=== PATIENT | male | born 1975 | race Two or more races ===

== ENCOUNTER 2018-10-08 16:37 | Emergency (ER) | payer OTHER ==
[2018-10-08] MEDS ORDERED: NS 0.9% 1000 ML** 1,000 ML IV.FLUID IV ONE (16:53)
[2018-10-08] MEDS ORDERED: EPINEPHRINE 1 MG/ML 1 ML VIAL ONE (16:55)
[2018-10-08] MEDS ORDERED: methylPREDNISolone 125 MG* 2 ML VIAL ONE (16:57)
[2018-10-08] MEDS ORDERED: diPHENhydraMINE IV* 50 MG/ML 1 ml VIAL (BENADRYL) ONE (16:58)
--- NOTE | 2018-10-08 17:01 | ED ---
Allergic Reaction/Systemic - HPI Summary HPI Summary: This patient is a 43 year old M whos presentsto [facility] by private car, accompanied by his with a chief complaint of chest tightness, throat tightening, a hoarse void and jaw pain after sustaining multiple bee stings by walking into a bee's nest which occurred at 15:10 today. Pts reports that he was also scratching his scalp. Pt did not take any medication prior to presenting. Pt has not prior hx of allergy to bees, or medications. Per triage , patient rates the pain of the multiple beestings as a 6/10 in severity. Pt has no PMH of heart disease and no family hx of heart disease. Both of his parents are alive and well. 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, arrived by private car Associated Signs And Symptoms: Positive: Chest Pain, Hoarseness, Rash - total body urticaria, Throat Tightening, Other: - jaw pain, lip swelling - Related Hx Possible Reaction To: Insect - bees - Allergies/Home Medications Allergies/Adverse Reactions: Allergies Allergy/AdvReac Type Severity Reaction Status Date / Time No Known Allergies Allergy Verified 10/08/18 16:42 PMH/Surg Hx/FS Hx/Imm Hx Previously Healthy: Yes Sensory History: Denies: Hx Legally Blind EENT History: Denies: Hx Deafness - Surgical History Surgical History: None Infectious Disease History: No Infectious Disease History: Denies: Traveled Outside the [place] in Last 30 Days - Family History Known Family History: Positive: None - Both of his parents are alive and well.No significant FHx of disease - Social History Lives: With Family Alcohol Use: Weekly Hx Substance Use: No Hx Tobacco Use: Yes Smoking Status (MU): Former Smoker Review of Systems Constitutional: Negative Positive: Other - pos - jaw pain, hoarse voice, throat tightening Positive: Chest Pain Respiratory: Negative Gastrointestinal: Negative Positive: no symptoms reported Musculoskeletal: Negative Positive: Other - total body urticaria Neurological: Negative Psychological: Normal All Other Systems Reviewed And Are Negative: Yes Physical Exam - Summary Physical Exam Summary: Appearance: Ill-appearing, moderate pain distress, well-nourished, hoarse voice per Skin: Warm, color reflects adequate perfusion, dry, All extremities and trunk covered in hives Head: scalp without abnormality despite report of itching, atraumatic Eyes: Conjunctiva clear, EOMI ENT: loss of lip creases and minor lip swelling, Frequently clearing throat, no uvular edema Neck: Supple, no nodes, no JVD Respiratory: Lungs clear, normal breath sounds, no respiratory distress Cardio: RRR, No murmur, pulses normal, brisk capillary refill Abdomen: Soft, nontender Bowel sounds: Present Musculoskeletal: Strength Intact/ROM intact, no calf tenderness, no edema. Psychological: Normal Neuro: Alert, muscle tone normal, no focal deficit Triage Information Reviewed: Yes Vital Signs On Initial Exam: Initial Vitals Temp Pulse Resp BP Pulse Ox 98.6 F 83 12 120/77 96 10/08/18 16:37 10/08/18 16:37 10/08/18 16:37 10/08/18 16:37 10/08/18 16:37 Vital Signs Reviewed: Yes Diagnostics - Vital Signs Vital Signs Temp Pulse Resp BP Pulse Ox 10/08/18 16:56 98.6 F 10/08/18 16:37 98.6 F 83 12 120/77 96 - Laboratory Lab Statement: Any lab studies that have been ordered have been reviewed, and results considered in the medical decision making process. - EKG 1705 Cardiac Rate: NL - 77 bpm EKG Rhythm: Sinus Rhythm ST Segment: Non-Specific Ectopy: None EKG Comparison: Other - no prior to compare Summary of EKG Findings: An EKG at 1705 reveals sinus rhythm 77 bpm nml AV/IV CT , nml QTc. No acute changes. ED has reviewed and interpreted this EKG. Re-Evaluation - Re-Evaluation First Eval Re-Evaluation Time: 17:05 Change: Improved Comment: Ordered EKG, no new symptoms. Pt has a myoclonic jerk. HR 76, O2 Sat 99 %, BP 117/72. PE upon re-eval : no wheezing Second Eval Re-Evaluation Time: 19:47 Change: Improved Comment: Nml voice, hives have diappeared. Lip swelling and hoarse voice have resolved. Discussed plan of care with pt and his . Allergic Reaction Course/Dx - Course Course Of Treatment: 43 yo M presents with anaphylaxis after stepping into a bee 's nest and sustaining multiple beestings. Pt was treated with meds immediately from the anaphylaxis kit, including Epinephrine as pt reported no cardiac history, and his symptoms improved over time while being observed in the ED. Initial physical exam findings revealed that pt frequently cleared his throat while speaking and per his had a hoarse voice. All of his extremities and trunk were covered with hives. Pt had mild lip swelling, no posterior pharyngeal or uvular swelling, no facial swelling, and no wheezes. An EKG at 1705 reveals sinus rhythm [address], nml QTc. No acute changes, and no prior to compare. Pt is on no medications and pt does not have a current PCP. This is the pt's first visit to the [facility] ED. Nurses notes reviewed. Pt had no prior allergies. In the ED course the patient was given epinephrine 0.3mg IM, Benadryl 50mg IV, Solumedrol 125mg IV (per the anaphylaxis kit) and famotidine 20mg IV and IV NS with relief of his symptoms. 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 He and his are advised that he will need to administre the Epipen and then call 911 in the event of another beesting. He is also advised that he will need to get established with a PCP, as well as see an starter mechanic for further evaluation and treatment. Pt will be discharged with prescriptions, that he must use as directed, for: Epipen with refills, prednisone, and famotidine and he is advised to continue Benadryl 50mg q 6 hours around the clock for the next 48 hrs and then prn. The patient is agreeable with this plan. - Diagnoses Provider Diagnoses: Bee sting-induced anaphylaxis, Bee allergy status - Critical Care Time Critical Care Time: 30-74 min Discharge ED - Sign-Out/Discharge Documenting (check all that apply): Patient Departure - home with his driving Patient Received Moderate/Deep Sedation with Procedure: No - Discharge Plan Condition: Stable Disposition: HOME Prescriptions: EPINEPHrine [Epipen 2-Steve] 0.3 mg IM ONCE PRN #1 inj PRN Reason: Hives Famotidine TAB* [Pepcid 20 MG TAB*] 40 mg PO DAILY #5 tab predniSONE [Prednisone 20 MG TAB] 40 mg PO ONCE #5 tablet Patient Education Materials: Anaphylaxis (ED) Forms: *Work Release Referrals: [facility] [Outside] William Flores MD [Medical Doctor] - As Soon As Possible (See an starter mechanic as soon as possible ) No Primary Care Phys,NOPCP [Primary Care Provider] - Additional Instructions: You were given epinephrine 0.3mg IM, benadryl 50mg IV, solumedrol 125mg IV and pepcid 20mg IV and your symptoms improved. Your EKG did not show any acute abnormalities. You will need to continue the benadryl 50mg orally every six hours for at least 48 hours, and you will need to take the prescriptions for prednisone and pepcid as directed for 5 days. You are allergic to bees with severe anaphylaxis as the reaction. You will always need to carry an epipen that you must inject any time you get another beesting, and then you must call 911. Return to the ER if you have any new or worsening symptoms. - Billing Disposition and Condition Condition: STABLE Disposition: Home - Attestation Statements Document Initiated by Danie: Yes Documenting Scribe: Dorys Dillard Provider For Whom Danie is Documenting (Include Credential): Dr. Traci Navarro MD Scribe Attestation: Dorys Mortensen scribed for Dr. Traci Navarro MD on 10/30/18 at 1416. Scribe Documentation Reviewed: Yes Provider Attestation: The documentation as recorded by the Dorys griffin accurately reflects the service I personally performed and the decisions made by me, Dr. Traci Navarro MD Status of [employer] Document: Viewed
[2018-10-08] MEDS ORDERED: Famotidine IV* 10 MG/ML 2 ML (20 mg) IV SLOW PU ONE (17:02)
[2018-10-08 18:28] LABS: HIV 4th Generation Negative (Negative)
[2018-10-08 20:20] VITALS: BP 108/63
== END 2018-10-08 20:20 | disposition home or self-care (01) ==
LOC: ED 16:37
DX: T63.441A Toxic effect of venom of bees, accidental (unintentional), initial encounter (principal); T78.2XXA Anaphylactic shock, unspecified, initial encounter; Y92.9 Unspecified place or not applicable; Z87.891 Personal history of nicotine dependence
CPT/HCPCS: 36415; 87389; 93005; 96361; 96374; 99283; J1200; J2930